=== PATIENT | male | born 2000 | race Caucasian/White ===

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

== ENCOUNTER 2019-05-05 10:20 | Inpatient (IN) | payer OTHER | END 2019-05-08 13:15 | disposition home or self-care (01) | LOC: F1N 17:37 ==